=== PATIENT | female | born 1965 | race Caucasian/White ===

== ENCOUNTER 2017-12-25 14:05 | Emergency (ER) | payer OTHER ==
[~2017-12-25] VITALS: Ht 165.1 cm; Wt 80.3 kg
[2017-12-25 15:13] LABS: APPEARANCE SL.HAZY ((CLEAR)); BILIRUBIN NEGATIVE; BLOOD MODERATE; COLOR YELLOW ((YELLOW)); GLUCOSE (STRIP) NEGATIVE; KETONES NEGATIVE; LEUKOCYTES NEGATIVE; NITRITE NEGATIVE; PROTEIN (STRIP) NEGATIVE; SPECIFIC GRAVITY 1.029 (1.000-1.030); UROBILINOGEN 0.2 MG/DL (0.2-1.0)
[2017-12-25 15:17] LABS: BACTERIA NONE SEEN /HPF; EPITHELIAL CELLS RARE /HPF; MUCUS TRACE /LPF; RED BLOOD CELLS 15-20 /HPF (0-5); WHITE BLOOD CELLS 0-5 /HPF (0-5)
[2017-12-25] MEDS ORDERED: PERCOCET 5/31 TABLET PO (16:46)
[2017-12-25] MEDS ORDERED: MOTRIN600 MG PO (16:46)
[2017-12-25] MEDS ORDERED: VALIUM5 MG PO (16:46)
[2017-12-25 17:38] VITALS: BP 178/93
== END 2017-12-25 17:40 | disposition home or self-care (01) ==
LOC: EME 14:05
PROVIDERS: Physician Assistant
DX: M54.6 Pain in thoracic spine (principal); Z85.850 Personal history of malignant neoplasm of thyroid; Z90.49 Acquired absence of other specified parts of digestive tract
CPT/HCPCS: 71046; 74176; 81003; 99281; 99284; J1885; J3010